=== PATIENT | female | born 1940 | race Caucasian/White ===

== ENCOUNTER 2019-12-08 13:31 | Emergency (ER) | payer MEDICARE ==
[~2019-12-08] VITALS: Ht 157.5 cm; Wt 74.4 kg
[~2019-12-08 13:31] MED LIST: ADULT LOW DOSE81 MG PO; ANTIOXIDANT SO1 EACH PO; CYMBALTA60 MG PO; MELATONIN10 MG PO; NORVASC2.5 MG PO; PROBIOTIC1 EAC1 PO; SYNTHROID112 MCG PO; ZESTRIL20 MG PO
== END 2019-12-08 14:20 | disposition home or self-care (01) ==
LOC: ED 13:31
DX: K56.41 Fecal impaction (principal); I10 Essential (primary) hypertension; Z87.891 Personal history of nicotine dependence; Z88.5 Allergy status to narcotic agent; Z79.899 Other long term (current) drug therapy
CPT/HCPCS: 99283

== ENCOUNTER 2020-01-11 08:31 | Emergency (ER) | payer MEDICARE ==
[~2020-01-11] VITALS: Ht 154.9 cm; Wt 76.2 kg
[2020-01-11] MEDS ORDERED: OXYBUTYNIN CHLOR5 M1 PO (08:45)
--- NOTE | 2020-01-11 10:31 | NUR ---
COVID SWAB COLLECTED NO COMPLICATIONS
[2020-01-11] MEDS ORDERED: BACTRIM DS TAB1 EACH PO (11:05)
--- NOTE | 2020-01-11 22:34 | EKG ---
[facility] [address] [facility] [place], [place] [address] Signed Sinus rhythm with 1st degree AV block Right bundle branch block Abnormal ECG No previous ECGs available Confirmed by NASIM DAVENPORT MD ([id number]) on 01/11/2020 10:33:55 PM Electronically Signed By: NASIM DAVENPORT MD 01/11/20 2234 PATIENT NAME: JUAN JOSE STRINGER Electrocardiogram DATE OF : 44 PHYSICIAN: NASIM DAVENPORT MD REPORT #: [id number] REPORT IS CONFIDENTIAL AND NOT TO BE RELEASED WITHOUT AUTHORIZATION
== END 2020-01-11 12:22 | disposition home or self-care (01) ==
LOC: ED 08:31
DX: N39.0 Urinary tract infection, site not specified (principal); Z20.828 Contact with and (suspected) exposure to other viral communicable diseases; I10 Essential (primary) hypertension; Z87.891 Personal history of nicotine dependence; Z88.5 Allergy status to narcotic agent; Z79.899 Other long term (current) drug therapy; Z79.82 Long term (current) use of aspirin
CPT/HCPCS: 71045; 80053; 81001; 83735; 84484; 85025; 87077; 87088; 87186; 93005; 93010; 99285-25; C9803; U0002

== ENCOUNTER 2020-05-19 08:13 | Day surgery (SDC) | payer MEDICARE ==
[~2020-05-19] VITALS: Ht 160 cm; Wt 76.2 kg
[~2020-05-19 08:13] MED LIST changes: +BACTRIM DS TAB1 EACH PO; +OXYBUTYNIN CHLOR5 M1 PO
[2020-05-19] MEDS ORDERED: MAGNESIUM400 M1 PO (08:41)
[2020-05-19] MEDS ORDERED: CALCIUM 600 +1 EAC8 PO (08:41)
--- NOTE | 2020-05-19 10:54 | NUR ---
05/19/20 1054 Dayne Sunshine SNORING ON ENTRY TO PACU. DOES NOT RESPOND TO TAP AND VOICE. VSS
--- NOTE | 2020-05-20 08:33 | OR ---
[facility] [address] [place], [place] [address] Signed DATE OF OPERATION: 05/19/2020 SURGEON: Jed Sevilla MD PREOPERATIVE DIAGNOSES: 1. Recurrent diarrhea. 2. Possible history of microscopic lymphocytic colitis in the past. 3. Personal history of colonic polyps in December 2018. 4. Magnesium oxide p.o. b.i.d. POSTOPERATIVE DIAGNOSES: 1. Moderate left-sided diverticulosis. 2. Minimal internal hemorrhoids. PROCEDURE: Colonoscopy with random cold biopsies. ESTIMATED BLOOD LOSS: None. INDICATIONS: Yas is a 80-year-old female, who has been having trouble with recurrent diarrhea for the last couple months. She had diarrhea last year apparently after taking some antibiotics. A colonoscopy was concerning for possible microscopic lymphocytic colitis. It seemed to resolve just before she had her procedure. Consequently, she did not receive any steroids. In the meantime, she did send off stool sample and came back negative for C. difficile colitis. She has also history of colonic polyps as well. She had been asked to see me for a repeat colonoscopy with biopsies due to her persistent diarrhea. In the office, I gave her a pamphlet on colonoscopy, we looked at that together along with the risks including, but not limited to gas bloating, crampy abdominal pain, bleeding, perforation requiring surgery, and missed diagnosis. We also discussed the need for IV conscious sedation, she had expressed understanding and wished to proceed. PROCEDURE NOTE: Yas was taken into our endoscopy suite and placed in the left lateral decubitus position. She was given IV sedation with 4 mg of Versed and 100 mcg of fentanyl. A digital rectal exam was performed and this was unremarkable. The adult colonoscope was introduced and advanced under direct visualization of camera. She does have some angulation in that sigmoid colon, it took a little while to get through there with Electronically Signed By: JED SEVILLA MD 05/20/20 0833 PATIENT NAME: YAS STRINGER OPERATIVE REPORT DATE OF : 44 REPORT #: [id number] PHYSICIAN: JED SEVILLA MD PCP: FAWAD MARIANO MD REPORT IS CONFIDENTIAL AND NOT TO BE RELEASED WITHOUT AUTHORIZATION [facility] [address] [place], [place] [address] Signed additional sedation abdominal compression. It continued to buckle bit in the sigmoid colon, so we continue with our abdominal compression. After that, the scope passed pretty readily right into the cecum itself. We could easily see the appendiceal orifice and ileocecal valve. We did our best to pass the colonoscope into the terminal ileum without success. After this, the scope was slowly withdrawn. We took pictures throughout for photodocumentation. We saw no evidence of any inflammatory changes throughout the entire colon. We had taken multiple pictures for photo documentation. We took multiple random cold biopsies throughout the colon because of the history of diarrhea. She also has left-sided diverticulosis. They were moderate in size, few to moderate in number, and scattered about. Again, she has some angulation in the sigmoid colon. The rectum itself was unremarkable. Upon retroflexion of scope, she has very minimal internal hemorrhoid tissue. After this, the gas was suctioned out and the colonoscope removed. Yas tolerated procedure quite well. RECOMMENDATIONS: I will see Yas back in my office in 7 to 14 days to review her results. Jed Sevilla MD ALB/MODL /[id number] cc: MD Fawad Dominique MD Copies: JED SEVILLA MD ~ Electronically Signed By: JED SEVILLA MD 05/20/20 0833 PATIENT NAME: YAS STRINGER OPERATIVE REPORT DATE OF : 44 REPORT #: [id number] PHYSICIAN: JED SEVILLA MD PCP: FAWAD MARIANO MD REPORT IS CONFIDENTIAL AND NOT TO BE RELEASED WITHOUT AUTHORIZATION
--- NOTE | 2020-05-23 16:14 | PATH ---
[facility] [address] [place], [place] [address] Signed SPECIMEN(S): A COLON SPECIMEN SOURCE: A. COLON CLINICAL HISTORY: History polyps, diarrhea. DX: Diverticulosis. Colonoscopy. MICROSCOPIC DESCRIPTION: Histologic sections of all submitted blocks are examined by light microscopy. These findings, together with the gross examination, support the pathologic diagnosis. FINAL PATHOLOGIC DIAGNOSIS: Colon, biopsy: - Collagenous colitis. - Negative for dysplasia or malignancy. - See comment. COMMENT: Sections demonstrate colonic mucosa with patchy subepithelial collagen band thickening, surface epithelial injury, mild increased intraepithelial lymphocytes, active inflammation characterized by cryptitis and crypt abscesses, and mixed lamina propria inflammation. No ulcerations, granulomata, or viral cytopathic changes are seen. Overall, these findings are compatible with collagenous colitis. NAL:cml:C2NR GROSS DESCRIPTION: The specimen, labeled "Yas Eddy, Isai," and designated on the requisition "random colon biopsy," is received in formalin and consists of four chang soft tissue fragments that measure 0.3-0.4 cm in greatest dimension. The specimen is entirely submitted in cassette (A1). FB (under the direct supervision of a pathologist) The Gross Description was prepared using a voice recognition system. The report was reviewed for accuracy; however, sound-alike word errors, addition and/or deletions may occur. If there is any question about this report, please contact Client Services. PERFORMING LABORATORY: PATIENT NAME: YAS EDDY PATHOLOGY DATE OF : 44 REPORT #: [id number] PHYSICIAN: PACHECO SEGURA PCP: TREVOR MARIANO MD REPORT IS CONFIDENTIAL AND NOT TO BE RELEASED WITHOUT AUTHORIZATION [facility] [address] [place], [place] [address] Signed The technical component was performed by [employer] [address] [address] (Machine Feed Operator: Nazanin Dupree MD; CLIA# [id number]). Professional interpretation was performed by [facility], [address] [address] (CLIA# [id number]). Diagnostician: Cesia Aguilar MD Pathologist Electronically Signed 05/23/2020 Copies: ~ PATIENT NAME: YAS EDDY PATHOLOGY DATE OF : 44 REPORT #: [id number] PHYSICIAN: PACHECO SEGURA PCP: TREVOR MARIANO MD REPORT IS CONFIDENTIAL AND NOT TO BE RELEASED WITHOUT AUTHORIZATION
== END 2020-05-19 11:35 | disposition home or self-care (01) ==
LOC: DS 08:13 → OPS 08:13 → DS 08:15 → OPS 09:30 → DS 09:30 → OPS 11:35
PROVIDERS: ATTEND Colon & Rectal Surgery
PROC: 0DBE8ZX Excision of Large Intestine, Via Natural or Artificial Opening Endoscopic, Diagnostic (ICD-10-PCS; principal; 2020-05-19 09:30)
DX: K52.831 Collagenous colitis (principal); K57.30 Diverticulosis of large intestine without perforation or abscess without bleeding; K64.8 Other hemorrhoids; F32.9 Major depressive disorder, single episode, unspecified; E03.9 Hypothyroidism, unspecified; I10 Essential (primary) hypertension; J43.9 Emphysema, unspecified; E11.42 Type 2 diabetes mellitus with diabetic polyneuropathy; F43.20 Adjustment disorder, unspecified; Z87.891 Personal history of nicotine dependence; Z86.010 Personal history of colon polyps; Z79.890 Hormone replacement therapy; Z79.899 Other long term (current) drug therapy; Z79.82 Long term (current) use of aspirin
CPT/HCPCS: 88305; 99153; G0500; J2250; J3010; J7121

== ENCOUNTER 2021-02-13 11:31 | Emergency (ER) | payer MEDICARE ==
[~2021-02-13] VITALS: Ht 154.9 cm; Wt 75.8 kg
[~2021-02-13 11:31] MED LIST changes: +CALCIUM 600 +1 EAC8 PO; +MAGNESIUM400 M1 PO
[2021-02-13] MEDS ORDERED: OMEPRAZOLE20 MG PO (11:49)
[2021-02-13] MEDS ORDERED: MACROBID 100 M100 MG PO (11:50)
[2021-02-13] MEDS ORDERED: METHYLPREDNISOLO4 M1 PO (13:44)
== END 2021-02-13 13:58 | disposition home or self-care (01) ==
LOC: ED 11:31
DX: M54.41 Lumbago with sciatica, right side (principal); I10 Essential (primary) hypertension; Z87.891 Personal history of nicotine dependence; Z88.5 Allergy status to narcotic agent; Z79.899 Other long term (current) drug therapy; Z79.82 Long term (current) use of aspirin
CPT/HCPCS: 99283

== ENCOUNTER 2021-03-27 12:06 | Observation (INO) | payer MEDICARE ==
[~2021-03-27] VITALS: Ht 154.9 cm; Wt 78.6 kg
[~2021-03-27 12:06] MED LIST changes: +MACROBID 100 M100 MG PO; +METHYLPREDNISOLO4 M1 PO; +OMEPRAZOLE20 MG PO
[2021-03-27] MEDS ORDERED: LYRICA50 MG PO (14:33)
[2021-03-27] MEDS ORDERED: LISINOPRIL10 MG PO (22:27)
[2021-03-27] MEDS ORDERED: BIOTIN5000 MCG PO (22:31)
[2021-03-27] MEDS ORDERED: DAILY MULTIVIT1 EAC3 PO (22:32)
[2021-03-28] MEDS ORDERED: PERCOCET 5-3251 EACH PO (07:20)
--- NOTE | 2021-03-29 14:57 | PATH ---
[facility] [address] [facility] [place], [place] [address] Signed SPECIMEN(S): A GALLBLADDER SPECIMEN SOURCE: A. GALLBLADDER CLINICAL HISTORY: Cholecystitis FINAL PATHOLOGIC DIAGNOSIS: Gallbladder, cholecystectomy: - Chronic cholecystitis. - Cholelithiasis. NAL:cml:C2NR MICROSCOPIC EXAMINATION: Histologic sections of all submitted blocks are examined by light microscopy. These findings, together with the gross examination, support the pathologic diagnosis. GROSS DESCRIPTION: The specimen, labeled "SE, gallbladder," is received in formalin and consists of: Specimen: Previously opened gallbladder. Dimensions: 8.0 cm in length and 3.7 cm in diameter. Serosa: Violaceous and smooth. Cystic Duct: Unobstructed. Calculi: Two black gallstones within the gallbladder and within the container that measure 1.0 and 1.2 cm in greatest dimension. Mucosa: [place]-chang and velvety. Wall thickness: 0.3 cm. Lymph node: No pericystic lymph nodes are grossly identified. Additional: None. Tobacco Drying Machine Operator sections are submitted in cassette (A1). JS (under the direct supervision of a pathologist) The Gross Description was prepared using a voice recognition system. The report was reviewed for accuracy; however, sound-alike word errors, addition and/or deletions may occur. If there is any question about this report, please contact Client Services. PERFORMING LABORATORY: The technical component was performed by [employer] [place], PATIENT NAME: JUAN JOSE STRINGER PATHOLOGY DATE OF : 44 REPORT #: [id number] PHYSICIAN: PACHECO SEGURA PCP: TREVOR MARIANO MD REPORT IS CONFIDENTIAL AND NOT TO BE RELEASED WITHOUT AUTHORIZATION [facility] [address] [place], [place] [address] [place] [address] (Bingo Usher: Nazanin Dupree MD; CLIA# [id number]). Professional interpretation [facility] performed by [facility], [address] [address] (CLIA# [id number]). Diagnostician: Cesia Aguilar MD Pathologist Electronically Signed 03/29/2021 Copies: ~ PATIENT NAME: JUAN JOSE STRINGER PATHOLOGY DATE OF : 44 REPORT #: [id number] PHYSICIAN: PACHECO SEGURA PCP: TREVOR MARIANO MD REPORT IS CONFIDENTIAL AND NOT TO BE RELEASED WITHOUT AUTHORIZATION
== END 2021-03-28 12:15 | disposition home or self-care (01) ==
LOC: ED 12:06 → MS 12:10
PROVIDERS: ADMIT Surgery; ATTEND Surgery
PROC: 0DNU4ZZ Release Omentum, Percutaneous Endoscopic Approach (ICD-10-PCS; 2021-03-27)
PROC: 0FT44ZZ Resection of Gallbladder, Percutaneous Endoscopic Approach (ICD-10-PCS; principal; 2021-03-27 18:10)
DX: K80.12 Calculus of gallbladder with acute and chronic cholecystitis without obstruction (principal); K66.0 Peritoneal adhesions (postprocedural) (postinfection); I10 Essential (primary) hypertension; E03.9 Hypothyroidism, unspecified; M19.90 Unspecified osteoarthritis, unspecified site; Z20.822 Contact with and (suspected) exposure to COVID-19; Z79.82 Long term (current) use of aspirin; Z87.891 Personal history of nicotine dependence; Z88.5 Allergy status to narcotic agent
CPT/HCPCS: 00790; 74177; 76705; 80053; 81001; 83690; 83735; 85025; 99285-25; A9270; C9803; G0378; J0330; J0694; J1100; J1885; J2001; J2250; J2405; J2704; J3480; J7121; Q9967; U0003